=== PATIENT | female | born 1980 | race American Indian/Alaskan Native ===

== ENCOUNTER 2020-06-04 14:57 | Emergency (ER) | payer MEDICAID ==
[2020-06-04 15:59] LABS: Basophils % (Auto) 0.6 % (0.0-1.8); Eosinophils # (Auto) 0.2 K/mm3 (0.0-0.4); Eosinophils % (Auto) 2.1 % (0.0-4.3); Hematocrit 35.6 % (30.3-42.9); Hemoglobin 12.3 gm/dl (10.1-14.3); Lymphocytes # (Auto) 2.3 K/mm3 (1.2-5.4); Lymphocytes % (Auto) 31.6 % (13.4-35.0); Mean Corpuscular HGB Conc 35 % (30-34); Mean Corpuscular Volume 83 fl (79-97); Monocytes # (Auto) 0.7 K/mm3 (0.0-0.8); Platelet Count 270 K/mm3 (140-440); Red Cell Distribution Width 14.6 % (13.2-15.2)
[2020-06-04 16:25] LABS: Alanine Aminotransferase 14 units/L (7-56); Albumin 3.6 g/dL (3.9-5); Blood Urea Nitrogen 12 mg/dL (7-17); Calcium 8.9 mg/dL (8.4-10.2); Hemolysis Index 1
[2020-06-04 16:26] LABS: BUN/Creatinine Ratio 17
--- NOTE | 2020-06-04 17:11 | Emergency Department Report ---
ED General Adult HPI - General Chief complaint: Neuro Symptoms/Deficit Stated complaint: LEFT ARM NUMB Time Seen by Provider: 06/04/20 16:46 Source: patient Mode of arrival: Ambulatory Limitations: No Limitations - History of Present Illness Initial comments: Patient is 40 years old female with history of hypertension. Patient presented to the ER complaining of left arm pain and numbness for the last week. Patient stated that she feels the numbness and the pain at the end of her working day. 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 Patient denied any chest pain, shortness of breath, fever cough. Patient also denied any weakness. She denied neck pain or injury. - Related Data Allergies Allergy/AdvReac Type Severity Reaction Status Date / Time No Known Allergies Allergy Verified 06/04/20 15:16 ED Review of Systems ROS: Stated complaint: LEFT ARM NUMB Other details as noted in HPI Comment: All other systems reviewed and negative Constitutional: denies: chills, fever Respiratory: denies: cough, shortness of breath, SOB with exertion, SOB at rest, wheezing Cardiovascular: denies: chest pain, palpitations Gastrointestinal: denies: abdominal pain, nausea, vomiting, diarrhea, constipation, hematemesis, melena, hematochezia Musculoskeletal: myalgia. denies: back pain Neurological: numbness. denies: headache, weakness, abnormal gait ED Past Medical Hx - Past Medical History Previous Medical History?: Yes Hx Hypertension: Yes - Surgical History Past Surgical History?: Yes Additional Surgical History: tubal ligation - Social History Smoking Status: Current Every Day Smoker Substance Use Type: None ED Physical Exam - General Limitations: No Limitations General appearance: alert, in no apparent distress - Head Head exam: Present: atraumatic, normocephalic, normal inspection - Eye Eye exam: Present: normal appearance, PERRL - ENT ENT exam: Present: normal exam, normal orophraynx, mucous membranes moist - Neck Neck exam: Present: normal inspection, full ROM. Absent: tenderness, meningismus, lymphadenopathy, thyromegaly - Respiratory Respiratory exam: Present: normal lung sounds bilaterally - Cardiovascular Cardiovascular Exam: Present: regular rate, normal rhythm, normal heart sounds - GI/Abdominal GI/Abdominal exam: Present: soft, normal bowel sounds. Absent: distended, tenderness, guarding, rebound, rigid, organomegaly, mass, bruit, pulsatile mass, hernia - Extremities Exam Extremities exam: Present: normal inspection, full ROM, normal capillary refill. Absent: tenderness, pedal edema, calf tenderness - Back Exam Back exam: Present: normal inspection, full ROM. Absent: CVA tenderness (R), CVA tenderness (L) - Neurological Exam Neurological exam: Present: alert, oriented X3, CN II-XII intact, normal gait, reflexes normal. Absent: motor sensory deficit - Psychiatric Psychiatric exam: Present: normal mood - Skin Skin exam: Present: warm, intact, normal color ED Course Vital Signs 06/04/20 06/04/20 06/04/20 15:14 16:42 17:00 Temperature 98.6 F Pulse Rate 76 Respiratory 20 Rate Blood Pressure 146/86 142/66 138/75 O2 Sat by Pulse 100 98 97 Oximetry ED Medical Decision Making - Lab Data Result diagrams: 06/04/20 15:48 06/04/20 15:48 - EKG Data -: EKG Interpreted by Ca EKG shows normal: sinus rhythm Rate: normal - EKG Data Interpretation: no acute changes - Radiology Data Radiology results: report reviewed - Medical Decision Making Patient is 40 years old female with history of hypertension. Patient presented to the ER complaining of left arm pain and numbness for the last week. Patient stated that she feels the numbness and the pain at the end of her working day. 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 Patient denied any chest pain, shortness of breath, fever cough. Patient also denied any weakness. She denied neck pain or injury. Labs reviewed is unremarkable. EKG shows sinus rhythm with no ST elevation or depression. X-ray of the cervical spine is negative for acute finding. Patient currently denying any weakness. Patient symptom is most likely related to cervical radiculopathy and patient advised to follow-up with her primary doctor for further management. No clinical or laboratory evidence of cardiac ischemia, no evidence of a stroke. Patient stroke scale is 0. Patient advised to return to the ER if she develop any new symptoms or if her symptoms get worse. Critical care attestation.: If time is entered above; I have spent that time in minutes in the direct care of this critically ill patient, excluding procedure time. ED Disposition Clinical Impression: Left arm pain Disposition: DC- TO HOME OR SELFCARE Is pt being admited?: No Condition: Stable Instructions: Cervical Radiculopathy (ED), Paresthesia (ED) Referrals: MADHURI JARA MD [Primary Care Provider] - 3-5 Days
[2020-06-04 17:28] VITALS: BP 138/75
--- NOTE | 2020-06-04 18:10 | XRay Report ---
CERVICAL SPINE, 4 VIEWS INDICATION / CLINICAL INFORMATION: neck pain. Left arm pain and numbness COMPARISON: None available. FINDINGS: Vertebral body heights and disc spaces are fairly well-preserved. Alignment is normal. No significant degenerative change. Paravertebral soft tissues are grossly unrem arkable. Visualized lung apices are clear. IMPRESSION: No significant osseous abnormality related to the cervical spine. Signer Name: Briana Ahn MD Signed: 06/04/2020 6:06 PM Workstation Name: [id number]
== END 2020-06-04 18:50 | disposition home or self-care (01) ==
LOC: ED 14:57
DX: M79.602 Pain in left arm (principal); R20.0 Anesthesia of skin; I10 Essential (primary) hypertension; F17.200 Nicotine dependence, unspecified, uncomplicated; Z98.51 Tubal ligation status
CPT/HCPCS: 36415; 72040; 80053; 82962; 84484; 85025; 93005

== ENCOUNTER 2020-08-26 15:21 | Emergency (ER) | payer MEDICAID ==
[2020-08-26 18:15] VITALS: BP 151/86
--- NOTE | 2020-08-26 18:24 | Emergency Department Report ---
ED General Adult HPI - General Chief complaint: Pain General Stated complaint: LFT SIDE TOOTHACHE/BODYACHE Time Seen by Provider: 08/26/20 18:14 Source: patient Mode of arrival: Ambulatory Limitations: No Limitations - History of Present Illness Initial comments: Patient is a 40-year-old female presents emergency room complaints of generalized body aches that began 2 days ago. She has associated occasional mild dry cough, headache, 2 episodes of vomiting. She states that she is also had left lower dental pain for 2 days. She denies any fever, chest pain, shortness of breath, diarrhea, facial swelling, difficulty swallowing. She denies any known sick contacts or recent travel. She has a past medical history of hypertension. No allergies to medications. Last menstrual cycle 08/12/2020. - Related Data Previous Rx's Medication Instructions Recorded Last Taken Type Naproxen [Naprosyn] 500 mg PO BID #14 tablet 06/04/20 Unknown Rx Allergies Allergy/AdvReac Type Severity Reaction Status Date / Time No Known Allergies Allergy Verified 06/04/20 15:16 ED Review of Systems ROS: Stated complaint: LFT SIDE TOOTHACHE/BODYACHE Other details as noted in HPI Comment: All other systems reviewed and negative ED Past Medical Hx - Past Medical History Previous Medical History?: Yes Hx Hypertension: Yes - Surgical History Past Surgical History?: Yes Additional Surgical History: tubal ligation - Social History Smoking Status: Never Smoker Substance Use Type: None - Medications Home Medications: Home Medications Medication Instructions Recorded Confirmed Last Taken Type Naproxen [Naprosyn] 500 mg PO BID #14 tablet 06/04/20 Unknown Rx ED Physical Exam - General Limitations: No Limitations General appearance: alert, in no apparent distress - Head Head exam: Present: atraumatic, normocephalic - Eye Eye exam: Present: normal appearance - ENT ENT exam: Present: normal orophraynx, mucous membranes moist, TM's normal bilaterally, normal external ear exam, other (dental carry to the left lower back molar, there is a hole present in the tooth, no edema or induration of the gumline, no facial edema, no necrosis, uvula is midline, no uvular edema or deviation, no trismus, no tongue elevation, no muffled voice ) - Respiratory Respiratory exam: Present: normal lung sounds bilaterally. Absent: respiratory distress, wheezes, rales, rhonchi, stridor, chest wall tenderness, accessory muscle use, decreased breath sounds, prolonged expiratory - Cardiovascular Cardiovascular Exam: Present: regular rate, normal rhythm, normal heart sounds. Absent: systolic murmur, diastolic murmur, rubs, gallop - Neurological Exam Neurological exam: Present: alert, oriented X3 - Psychiatric Psychiatric exam: Present: normal affect, normal mood - Skin Skin exam: Present: warm, dry, intact ED Course Vital Signs 08/26/20 15:40 Pulse Rate 80 Respiratory 18 Rate Blood Pressure 151/86 O2 Sat by Pulse 98 Oximetry ED Medical Decision Making - Medical Decision Making Patient is a 40-year-old female presents emergency room complaints of generalized body aches that began 2 days ago. She has associated occasional mild dry cough, headache, 2 episodes of vomiting. She states that she is also had left lower dental pain for 2 days. She denies any fever, chest pain, shortness of breath, diarrhea, facial swelling, difficulty swallowing. She denies any known sick contacts or recent travel. She has a past medical history of hypertension. No allergies to medications. Last menstrual cycle 08/12/2020. vss. on exam: dental carry to the left lower back molar, there is a hole present in the tooth, no edema or induration of the gumline, no facial edema, no necrosis, uvula is midline, no uvular edema or deviation, no trismus, no tongue elevation, no muffled voice, breath sounds are clear bilaterally, no wheezing, no rales, no rhonchi, normal oropharynx, normal TMs and canals. Examination appears consistent with dental carry, no signs of dental abscess, infected dental caries, significant gingivitis, Ludwigs. Symptoms also consistent with viral URI. She has no clinical signs of bacterial pneumonia or bacterial bronchitis. No clinical signs of bacterial sinusitis. She has no clinical signs of dehydration. Patient is presenting with the symptoms during COVID-19 pandemic, discussed COVID-19 with patient, discuss strict return precautions, discussed outpatient testing, discussed self quarantine. advised pt Please increase your fluid intake over the next several days. May take Tylenol as needed for fever or body aches. May take [id number] cold symptom relief medication such as Mucinex or TheraFlu. Follow-up with a primary care doctor for reexamination. Return to emergency room immediately for any new or worsening symptoms including but not limited to difficulty breathing, shortness of breath, severe chest pain, unable to tolerate by mouth intake, etc. Please self quarantine for 10 days from the onset of your symptoms. Please do not go out in public. If you are around others at home please wear a mask. If you need to cough or sneeze please do so in a napkin and immediately throw it away and immediately wash your hands. Wash your hands frequently. Wipe everything down. Recommend for you to get COVID-19 testing, may have this done at primary care doctor, health department, [facility]. Please follow-up with a dentist regarding your cavities. Return to emergency room for any new or worsening symptoms. Critical care attestation.: If time is entered above; I have spent that time in minutes in the direct care of this critically ill patient, excluding procedure time. ED Disposition Clinical Impression: Viral URI with cough, Dental caries Disposition: TO HOME OR SELFCARE Is pt being admited?: No Does the pt Need Aspirin: No Condition: Stable Instructions: Viral Respiratory Infection, [id number] Additional Instructions: Please increase your fluid intake over the next several days. May take Tylenol as needed for fever or body aches. May take [id number]-[id number] cold symptom relief medication such as Mucinex or TheraFlu. Follow-up with a primary care doctor for reexamination. Return to emergency room immediately for any new or worsening symptoms including but not limited to difficulty breathing, shortness of breath, severe chest pain, unable to tolerate by mouth intake, etc. Please self quarantine for 10 days from the onset of your symptoms. Please do not go out in public. If you are around others at home please wear a mask. If you need to cough or sneeze please do so in a napkin and immediately throw it away and immediately wash your hands. Wash your hands frequently. Wipe everything down. Recommend for you to get COVID-19 testing, may have this done at primary care doctor, health department, [facility] or [facility]. Please follow-up with a dentist regarding your cavities. Return to emergency room for any new or worsening symptoms. Referrals: ABHINAV MENDEZ MD [Staff Physician] - 2-3 Days [facility] [Provider Group] - 2-3 Days [facility] [Outside] - 2-3 Days [facility] [Outside] - 2-3 Days [facility] [Outside] - 2-3 Days Forms: Work/School Release Form(ED) Time of Disposition: 18:23 Print Language: DANISH
== END 2020-08-26 18:25 | disposition home or self-care (01) ==
LOC: ED 15:21
DX: J06.9 Acute upper respiratory infection, unspecified (principal); K02.9 Dental caries, unspecified; B97.89 Other viral agents as the cause of diseases classified elsewhere; I10 Essential (primary) hypertension; Z79.899 Other long term (current) drug therapy; Z98.51 Tubal ligation status
CPT/HCPCS: 99282

== ENCOUNTER 2020-11-05 08:50 | Emergency (ER) | payer MEDICAID ==
[2020-11-05 09:00] VITALS: BP 121/71
--- NOTE | 2020-11-05 09:33 | Emergency Department Report ---
ED ENT HPI - General Chief complaint: Dental/Oral Stated complaint: LEFT JAW PAIN/LEFT FACE PAIN Time Seen by Provider: 11/05/20 09:28 Source: patient Mode of arrival: Ambulatory Limitations: No Limitations - History of Present Illness Initial comments: 40-year-old male female to the emerge department complaining of 1 week history of left lower dental pain has been happening off and on for the past few months but is reemerged last for 5 days. Reports no fever, chills, sweats but pain is worse with chewing, palpation and certain positions. She reports no known dental trauma but has has noticed a hole in that area due to follow-up with her dentist on November 23 Location: tooth # 1 - Dental caries, erosion noted. Consistency: constant Improves with: none Worsens with: none Associated Symptoms: toothache. denies: sore throat, tinnitus, discharge from ear, rhinorrhea - Related Data Previous Rx's Medication Instructions Recorded Last Taken Type Naproxen [Naprosyn] 500 mg PO BID #14 tablet 06/04/20 Unknown Rx Chlorhexidine Mouthwash [Peridex] 15 ml MM BID #1 bottle 11/05/20 Unknown Rx Ketorolac [Toradol] 10 mg PO Q6H PRN #15 tablet 11/05/20 Unknown Rx Lidocaine Viscous 2% 5 ml MM Q3H PRN #120 udc 11/05/20 Unknown Rx Allergies Allergy/AdvReac Type Severity Reaction Status Date / Time No Known Allergies Allergy Verified 11/05/20 08:54 ED Dental HPI - General Chief complaint: Dental/Oral Stated complaint: LEFT JAW PAIN/LEFT FACE PAIN Time Seen by Provider: 11/05/20 09:28 Source: patient Mode of arrival: Ambulatory Limitations: No Limitations - Related Data Previous Rx's Medication Instructions Recorded Last Taken Type Naproxen [Naprosyn] 500 mg PO BID #14 tablet 06/04/20 Unknown Rx Chlorhexidine Mouthwash [Peridex] 15 ml MM BID #1 bottle 11/05/20 Unknown Rx Ketorolac [Toradol] 10 mg PO Q6H PRN #15 tablet 11/05/20 Unknown Rx Lidocaine Viscous 2% 5 ml MM Q3H PRN #120 udc 11/05/20 Unknown Rx Allergies Allergy/AdvReac Type Severity Reaction Status Date / Time No Known Allergies Allergy Verified 11/05/20 08:54 ED Review of Systems ROS: Stated complaint: LEFT JAW PAIN/LEFT FACE PAIN Other details as noted in HPI Comment: All other systems reviewed and negative ED Past Medical Hx - Past Medical History Previous Medical History?: Yes Hx Hypertension: Yes - Surgical History Additional Surgical History: tubal ligation - Social History Smoking Status: Never Smoker Substance Use Type: None - Medications Home Medications: Home Medications Medication Instructions Recorded Confirmed Last Taken Type Naproxen [Naprosyn] 500 mg PO BID #14 tablet 06/04/20 Unknown Rx Chlorhexidine Mouthwash [Peridex] 15 ml MM BID #1 bottle 11/05/20 Unknown Rx Ketorolac [Toradol] 10 mg PO Q6H PRN #15 tablet 11/05/20 Unknown Rx Lidocaine Viscous 2% 5 ml MM Q3H PRN #120 udc 11/05/20 Unknown Rx ED Physical Exam - General Limitations: No Limitations General appearance: alert, in no apparent distress - Head Head exam: Present: atraumatic, normocephalic - Eye Eye exam: Present: normal appearance - ENT ENT exam: Present: mucous membranes moist, other - Neck Neck exam: Present: normal inspection - Respiratory Respiratory exam: Present: normal lung sounds bilaterally. Absent: respiratory distress - Cardiovascular Cardiovascular Exam: Present: regular rate, normal rhythm. Absent: systolic murmur, diastolic murmur, rubs, gallop - GI/Abdominal GI/Abdominal exam: Present: soft, normal bowel sounds - Extremities Exam Extremities exam: Present: normal inspection - Back Exam Back exam: Present: normal inspection - Neurological Exam Neurological exam: Present: alert, oriented X3 - Psychiatric Psychiatric exam: Present: normal affect, normal mood - Skin Skin exam: Present: warm, dry, intact, normal color. Absent: rash ED Course Vital Signs 11/05/20 08:54 Temperature 98 F Pulse Rate 83 Respiratory 20 Rate Blood Pressure 121/71 O2 Sat by Pulse 99 Oximetry Critical care attestation.: If time is entered above; I have spent that time in minutes in the direct care of this critically ill patient, excluding procedure time. ED Disposition Clinical Impression: Dentalgia Disposition: DC-01 TO HOME OR SELFCARE Is pt being admited?: No Does the pt Need Aspirin: No Condition: Stable Instructions: Tooth Injuries, Dental Abscess Referrals: PRIMARY CARE,MD [Primary Care Provider] - 3-5 Days [facility] [Outside] - 3-5 Days
== END 2020-11-05 10:03 | disposition home or self-care (01) ==
LOC: ED 08:50
DX: K08.89 Other specified disorders of teeth and supporting structures (principal); I10 Essential (primary) hypertension; Z98.51 Tubal ligation status; Z79.899 Other long term (current) drug therapy
CPT/HCPCS: 99282